=== PATIENT | female | born 1950 | race Caucasian/White ===

== ENCOUNTER 2022-02-03 11:21 | Inpatient (IN) ==
[2022-02-03] MEDS ORDERED: Morphine Sulfate 2 MG/ML SYRINGE IVP ONE (11:51)
[2022-02-03] MEDS ORDERED: Isovue-370 500 ML BOTTLE IVP ONE (12:30)
[2022-02-03 12:36] LABS: Basophils # 0.1 K/mcL (0.0-0.2); Basophils % 0.4 %; Eosinophils % 0.3 %; Hematocrit 35.6 % (35.3-44.9); Hemoglobin 11.2 g/dL (11.5-15.4); Immature Granulocytes % 0.8 % (0-4); Lymphocytes % 8.7 %; Mean Corpuscular HGB Conc 31.5 g/dL (31.6-35.5); Mean Corpuscular Hemoglobin 29.9 pg (28.0-33.3); Mean Corpuscular Volume 94.9 fL (83.0-100.0); Mean Platelet Volume 9.7 fL (9.4-12.4); Monocytes # 0.8 K/mcL (0.0-1.3); Monocytes % 6.5 %; Neutrophils # 9.7 K/mcL (1.6-8.9); Platelet Count 233 K/mcL (140-400); Red Blood Count 3.75 M/mcL (3.82-4.97); Red Cell Distribution Width 12.8 % (11.5-14.5); Segmented Neutrophils % 83.3 %; White Blood Count 11.7 K/mcL (4.3-11.1)
[2022-02-03 12:41] LABS: INR 1.2; Prothrombin Time 13.3 Seconds (9.4-12.1)
[2022-02-03 12:44] LABS: Activated Partial Thrombo Time 30.9 Seconds (26.0-36.0)
[2022-02-03] MEDS: 0.9 % Sodium Chloride 1,000 ML IVC SCH ×2 (12:48→13:46)
[2022-02-03 12:56] LABS: Bilirubin,Urine Negative (Negative); Blood,Urine Small (Negative); Clarity,Urine Clear (Clear); Color,Urine Light-Yellow (Yellow); Glucose,Urine (UA) Normal (Normal); Hyaline Casts,Urine Few per lpf (None Seen); Ketones,Urine >150 mg/dL (Negative); Leukocyte Esterase,Urine Negative (Negative); Mucus,Urine Few per lpf (None-Few); Nitrite,Urine Negative (Negative); PH,Urine 5.5 pH Units (5.0-8.0); Protein,Urine 50 mg/dL (Neg-Trace); RBC,Urine 0-3 per hpf (0-3); Squamous Epithelial Cell,Urine Few per hpf (None-Few); Urobilinogen,Urine Normal (Normal)
[2022-02-03 12:57] LABS: Albumin/Globulin Ratio 1.2 (1.1-2.2); Bilirubin,Direct 0.2 mg/dL (0.0-0.2); Bilirubin,Indirect 0.6 mg/dL (0.0-1.0); Bilirubin,Total 0.8 mg/dL (0.3-1.0); Calcium 10.1 mg/dL (8.6-10.3); Globulin 3.3 g/dL (2.4-3.5); Potassium 4.3 mEq/L (3.5-5.1); Total Protein 7.3 g/dL (6.4-8.9)
[2022-02-03] MEDS ORDERED: cefTRIAXone 1,000 MG in 0.9 % Sodium Chloride Mini Bag 100 ML IVPB ONE (12:57)
[2022-02-03 13:21] LABS: Troponin I 0.04 ng/mL (< 0.04)
[2022-02-03] MEDS ORDERED: *HR* HYDROmorphone 2 MG/ML SYRINGE IVP ONE (13:57)
[2022-02-03] MEDS ORDERED: diazePAM 10 MG/2 ML SYRINGE IVP ONE (14:19)
[2022-02-03 15:08] LABS: Influenza A PCR Negative (Negative); Influenza B PCR Negative (Negative); Resp. Syncytial Virus PCR Negative (Negative)
[2022-02-03] MEDS ORDERED: Ketorolac 30 MG/ML VIAL IVP PRN (15:11)
[2022-02-03] MEDS ORDERED: Melatonin 3 MG TABLET PO PRN (15:11)
[2022-02-03] MEDS ORDERED: Naloxone 0.4 MG/ML INJ IVP PRN (15:11)
[2022-02-03 15:13] LABS: SARS-CoV-2 by PCR (In House) Negative (Negative)
[2022-02-03] MEDS: Acetaminophen IV 1,000 MG/100 ML BAG IVPB SCH ×2 (16:43→23:46)
[2022-02-03] MEDS: *HR* OxyCODONE Immed Rel 5 MG TABLET PO PRN ×2 (17:31→23:46)
[2022-02-03] MEDS ORDERED: Acetaminophen IV 1,000 MG/100 ML BAG IVPB SCH (18:00)
[2022-02-03] MEDS ORDERED: *HR* Dextrose 50 % in Water (Syg) 50 ML SYRINGE IVP PRN (18:16)
[2022-02-03] MEDS ORDERED: Dextrose 4 GM Chewable Tablets PO PRN ×2 (18:16)
[2022-02-03] MEDS ORDERED: D5% in Water 1,000 ML IVC PRN (18:16)
[2022-02-03] MEDS: Carbidopa/Levodopa 25/100 TABLET PO SCH (20:46)
[2022-02-03] MEDS: traZODone 50 MG TABLET PO SCH (20:46)
[2022-02-03] MEDS: Gabapentin 100 MG CAPSULE PO SCH (20:46)
[2022-02-03] MEDS: Insulin LISPRO 300 UNITS/3 ML VIAL SUBQ SCH (20:47)
[2022-02-03] MEDS: Ondansetron 4 MG/2 ML VIAL IVP PRN (21:33)
[2022-02-04] MEDS: Acetaminophen IV 1,000 MG/100 ML BAG IVPB SCH ×4 (04:54→23:52)
[2022-02-04] MEDS: Ondansetron 4 MG/2 ML VIAL IVP PRN (04:54)
[2022-02-04 06:47] LABS: Basophils % 0.2 %; Eosinophils # 0.2 K/mcL (0.0-0.6); Eosinophils % 2.2 %; Hematocrit 28.6 % (35.3-44.9); Immature Granulocytes % 0.4 % (0-4); Lymphocytes # 0.9 K/mcL (0.6-4.6); Lymphocytes % 9.5 %; Mean Corpuscular HGB Conc 32.5 g/dL (31.6-35.5); Mean Corpuscular Hemoglobin 30.5 pg (28.0-33.3); Mean Corpuscular Volume 93.8 fL (83.0-100.0); Mean Platelet Volume 10.3 fL (9.4-12.4); Monocytes # 0.7 K/mcL (0.0-1.3); Monocytes % 7.3 %; Neutrophils # 7.9 K/mcL (1.6-8.9); Platelet Count 202 K/mcL (140-400); Red Blood Count 3.05 M/mcL (3.82-4.97); Segmented Neutrophils % 80.4 %; White Blood Count 9.9 K/mcL (4.3-11.1)
[2022-02-04 06:48] LABS: Hemoglobin 9.3 g/dL (11.5-15.4)
[2022-02-04 07:19] LABS: Potassium 3.7 mEq/L (3.5-5.1)
[2022-02-04] MEDS: Gabapentin 100 MG CAPSULE PO SCH ×2 (08:46→20:34)
[2022-02-04] MEDS: 0.9 % Sodium Chloride 1,000 ML IVC SCH (08:47)
[2022-02-04] MEDS: Carbidopa/Levodopa 25/100 TABLET PO SCH ×3 (08:47→20:34)
[2022-02-04] MEDS: Multivit/Ca/Min/Fe/FA 1 TAB TABLET PO SCH (08:48)
[2022-02-04] MEDS: lisinopriL 5 MG TABLET PO SCH (08:48)
[2022-02-04] MEDS: *HR* OxyCODONE Immed Rel 5 MG TABLET PO PRN ×2 (08:48→20:34)
[2022-02-04] MEDS ORDERED: NON-FORMULARY MEDICATION 1 EACH EACH (Vit A/Vit C/Vit E/Zinc/Copper [Preservision Areds Ta PO SCH (09:00)
[2022-02-04] MEDS: Insulin LISPRO 300 UNITS/3 ML VIAL SUBQ SCH ×4 (09:48→20:03)
[2022-02-04] MEDS: traZODone 50 MG TABLET PO SCH (20:34)
[2022-02-05 01:03] LABS: Basophils % 0.2 %; Eosinophils # 0.4 K/mcL (0.0-0.6); Eosinophils % 4.3 %; Hematocrit 26.1 % (35.3-44.9); Hemoglobin 8.2 g/dL (11.5-15.4); Immature Granulocytes % 0.4 % (0-4); Lymphocytes # 1.8 K/mcL (0.6-4.6); Lymphocytes % 18.9 %; Mean Corpuscular HGB Conc 31.4 g/dL (31.6-35.5); Mean Corpuscular Hemoglobin 29.8 pg (28.0-33.3); Mean Corpuscular Volume 94.9 fL (83.0-100.0); Monocytes # 0.8 K/mcL (0.0-1.3); Monocytes % 8.1 %; Neutrophils # 6.5 K/mcL (1.6-8.9); Platelet Count 195 K/mcL (140-400); Red Blood Count 2.75 M/mcL (3.82-4.97); Segmented Neutrophils % 68.1 %; White Blood Count 9.6 K/mcL (4.3-11.1)
[2022-02-05 01:25] LABS: Calcium 8.6 mg/dL (8.6-10.3); Potassium 3.8 mEq/L (3.5-5.1)
[2022-02-05] MEDS: 0.9 % Sodium Chloride 1,000 ML IVC SCH (02:22)
[2022-02-05] MEDS: Acetaminophen IV 1,000 MG/100 ML BAG IVPB SCH ×4 (05:00→23:19)
[2022-02-05] MEDS: Insulin LISPRO 300 UNITS/3 ML VIAL SUBQ SCH ×4 (09:46→20:50)
[2022-02-05] MEDS: Carbidopa/Levodopa 25/100 TABLET PO SCH ×3 (09:56→20:48)
[2022-02-05] MEDS: lisinopriL 5 MG TABLET PO SCH (09:56)
[2022-02-05] MEDS: Multivit/Ca/Min/Fe/FA 1 TAB TABLET PO SCH (09:56)
[2022-02-05] MEDS: Gabapentin 100 MG CAPSULE PO SCH (09:57)
[2022-02-05] MEDS: *HR* OxyCODONE Immed Rel 5 MG TABLET PO PRN ×3 (09:57→20:52)
[2022-02-05] MEDS: traZODone 50 MG TABLET PO SCH (20:50)
[2022-02-05] MEDS ORDERED: Gabapentin 100 MG CAPSULE PO SCH (21:00)
[2022-02-06] MEDS: Acetaminophen IV 1,000 MG/100 ML BAG IVPB SCH (04:45)
[2022-02-06] MEDS: *HR* OxyCODONE Immed Rel 5 MG TABLET PO PRN (04:50)
[2022-02-06 04:52] LABS: Basophils % 0.3 %; Eosinophils # 0.3 K/mcL (0.0-0.6); Eosinophils % 4.1 %; Hematocrit 28.1 % (35.3-44.9); Hemoglobin 8.8 g/dL (11.5-15.4); Immature Granulocytes % 0.4 % (0-4); Lymphocytes # 1.1 K/mcL (0.6-4.6); Mean Corpuscular HGB Conc 31.3 g/dL (31.6-35.5); Mean Corpuscular Hemoglobin 30.2 pg (28.0-33.3); Mean Corpuscular Volume 96.6 fL (83.0-100.0); Mean Platelet Volume 9.8 fL (9.4-12.4); Monocytes # 0.6 K/mcL (0.0-1.3); Neutrophils # 5.1 K/mcL (1.6-8.9); Platelet Count 223 K/mcL (140-400); Red Blood Count 2.91 M/mcL (3.82-4.97); Segmented Neutrophils % 71.2 %; White Blood Count 7.1 K/mcL (4.3-11.1)
[2022-02-06 05:10] LABS: BUN/Creatinine Ratio 18 (6-26); Blood Urea Nitrogen 17 mg/dL (8-23); Calcium 8.9 mg/dL (8.6-10.3); Carbon Dioxide 24 mEq/L (23-29); Chloride 106 mEq/L (98-107); Glucose 108 mg/dL (70-105); Osmolality,Calculated 284 (280-300); Sodium 136 mEq/L (136-145); eGFR For African Americans > 60 (> 60); eGFR For Non-African Americans 58 (> 60)
[2022-02-06 05:12] LABS: % Iron Saturation 7 % (15-50); Iron 17 mcg/dL (50-170); Transferrin 170 mg/dL (203-362)
[2022-02-06 05:27] LABS: Ferritin 64 ng/mL (10-120)
[2022-02-06 05:36] LABS: Folate > 22.3 ng/mL (3.0-16.0); Vitamin B12 > 1500 pg/mL (250-1100)
[2022-02-06] MEDS ORDERED: Acetaminophen 325 MG TABLET PO PRN (08:30)
[2022-02-06] MEDS ORDERED: *HR* OxyCODONE/APAP 5/325 TABLET PO PRN ×2 (08:30→20:23)
[2022-02-06] MEDS: lisinopriL 5 MG TABLET PO SCH (09:34)
[2022-02-06] MEDS: Multivit/Ca/Min/Fe/FA 1 TAB TABLET PO SCH (09:34)
[2022-02-06] MEDS: Sennosides/Docusate Sodium TABLET PO SCH ×2 (09:34→20:31)
[2022-02-06] MEDS: Carbidopa/Levodopa 25/100 TABLET PO SCH ×3 (09:35→20:32)
[2022-02-06] MEDS: Gabapentin 100 MG CAPSULE PO SCH ×3 (09:35→20:30)
[2022-02-06] MEDS: Insulin LISPRO 300 UNITS/3 ML VIAL SUBQ SCH ×4 (09:36→20:33)
[2022-02-06] MEDS: *HR* OxyCODONE/APAP 10/325 TABLET PO PRN ×4 (09:36→23:40)
[2022-02-06] MEDS: traZODone 50 MG TABLET PO SCH (20:30)
[2022-02-07] MEDS: *HR* OxyCODONE/APAP 10/325 TABLET PO PRN ×2 (05:26→19:16)
[2022-02-07 05:50] LABS: Basophils % 0.2 %; Eosinophils # 0.3 K/mcL (0.0-0.6); Eosinophils % 6.1 %; Hematocrit 26.5 % (35.3-44.9); Hemoglobin 8.3 g/dL (11.5-15.4); Immature Granulocytes % 0.4 % (0-4); Lymphocytes # 1.4 K/mcL (0.6-4.6); Lymphocytes % 25.7 %; Mean Corpuscular HGB Conc 31.3 g/dL (31.6-35.5); Mean Corpuscular Hemoglobin 30.2 pg (28.0-33.3); Mean Corpuscular Volume 96.4 fL (83.0-100.0); Mean Platelet Volume 9.6 fL (9.4-12.4); Monocytes # 0.6 K/mcL (0.0-1.3); Monocytes % 11.2 %; Neutrophils # 3.1 K/mcL (1.6-8.9); Platelet Count 244 K/mcL (140-400); Red Blood Count 2.75 M/mcL (3.82-4.97); Red Cell Distribution Width 13.2 % (11.5-14.5); Segmented Neutrophils % 56.4 %; White Blood Count 5.5 K/mcL (4.3-11.1)
[2022-02-07 06:10] LABS: BUN/Creatinine Ratio 16 (6-26); Blood Urea Nitrogen 14 mg/dL (8-23); Calcium 9.5 mg/dL (8.6-10.3); Carbon Dioxide 28 mEq/L (23-29); Chloride 105 mEq/L (98-107); Glucose 121 mg/dL (70-105); Osmolality,Calculated 286 (280-300); Potassium 4.1 mEq/L (3.5-5.1); Sodium 137 mEq/L (136-145); eGFR For African Americans > 60 (> 60); eGFR For Non-African Americans > 60 (> 60)
[2022-02-07] MEDS: Insulin LISPRO 300 UNITS/3 ML VIAL SUBQ SCH ×4 (09:24→21:21)
[2022-02-07] MEDS: Sennosides/Docusate Sodium TABLET PO SCH ×2 (10:42→21:20)
[2022-02-07] MEDS: Multivit/Ca/Min/Fe/FA 1 TAB TABLET PO SCH (10:42)
[2022-02-07] MEDS: Gabapentin 100 MG CAPSULE PO SCH ×3 (10:43→21:20)
[2022-02-07] MEDS: lisinopriL 5 MG TABLET PO SCH (10:43)
[2022-02-07] MEDS: Carbidopa/Levodopa 25/100 TABLET PO SCH ×3 (10:44→21:20)
[2022-02-07] MEDS: *HR* OxyCODONE ER (12 HR) 10 MG TABLET PO SCH ×2 (10:50→18:23)
[2022-02-07] MEDS: *HR* HYDROcodone/Acet 5/325 mg TABLET PO PRN (14:57)
[2022-02-07] MEDS: traZODone 50 MG TABLET PO SCH (21:20)
[2022-02-08] MEDS: *HR* OxyCODONE/APAP 10/325 TABLET PO PRN ×3 (00:25→16:15)
[2022-02-08] MEDS: *HR* HYDROcodone/Acet 5/325 mg TABLET PO PRN ×3 (03:14→21:24)
[2022-02-08] MEDS: *HR* OxyCODONE ER (12 HR) 10 MG TABLET PO SCH ×2 (06:01→17:56)
[2022-02-08] MEDS: lisinopriL 5 MG TABLET PO SCH (10:35)
[2022-02-08] MEDS: Gabapentin 100 MG CAPSULE PO SCH ×3 (10:35→21:24)
[2022-02-08] MEDS: Sennosides/Docusate Sodium TABLET PO SCH ×2 (10:35→21:24)
[2022-02-08] MEDS: Multivit/Ca/Min/Fe/FA 1 TAB TABLET PO SCH (10:35)
[2022-02-08] MEDS: Carbidopa/Levodopa 25/100 TABLET PO SCH ×3 (10:35→21:24)
[2022-02-08] MEDS: Insulin LISPRO 300 UNITS/3 ML VIAL SUBQ SCH ×4 (10:36→21:25)
[2022-02-08] MEDS: *HR* Heparin 5,000 UNIT/ML VIAL SQ SCH ×2 (10:38→17:56)
[2022-02-08] MEDS ORDERED: *HR* Heparin 5,000 UNIT/ML VIAL SQ SCH (18:00)
[2022-02-08] MEDS: traZODone 50 MG TABLET PO SCH (21:24)
[2022-02-09] MEDS: *HR* Heparin 5,000 UNIT/ML VIAL SQ SCH ×2 (05:57→16:46)
[2022-02-09] MEDS: Insulin LISPRO 300 UNITS/3 ML VIAL SUBQ SCH ×4 (08:00→21:00)
[2022-02-09] MEDS: Carbidopa/Levodopa 25/100 TABLET PO SCH ×3 (08:00→21:00)
[2022-02-09] MEDS: Gabapentin 100 MG CAPSULE PO SCH ×3 (08:00→21:00)
[2022-02-09] MEDS: Sennosides/Docusate Sodium TABLET PO SCH ×2 (08:00→21:00)
[2022-02-09] MEDS: lisinopriL 5 MG TABLET PO SCH (08:00)
[2022-02-09] MEDS: Multivit/Ca/Min/Fe/FA 1 TAB TABLET PO SCH (08:01)
[2022-02-09] MEDS: *HR* OxyCODONE ER (12 HR) 10 MG TABLET PO SCH ×2 (08:01→20:59)
[2022-02-09] MEDS: *HR* OxyCODONE/APAP 10/325 TABLET PO PRN (11:17)
[2022-02-09] MEDS: Ondansetron 4 MG/2 ML VIAL IVP PRN (16:45)
[2022-02-09] MEDS: *HR* HYDROcodone/Acet 5/325 mg TABLET PO PRN (18:51)
[2022-02-09] MEDS: traZODone 50 MG TABLET PO SCH (20:59)
[2022-02-09] MEDS ORDERED: *HR* Metoprolol 5 MG/5 ML VIAL IVP ONE (23:05)
[2022-02-10 00:34] LABS: Hematocrit 29.5 % (35.3-44.9); Hemoglobin 9.7 g/dL (11.5-15.4); Mean Corpuscular HGB Conc 32.9 g/dL (31.6-35.5); Mean Corpuscular Hemoglobin 30.1 pg (28.0-33.3); Mean Corpuscular Volume 91.6 fL (83.0-100.0); Mean Platelet Volume 9.3 fL (9.4-12.4); Platelet Count 333 K/mcL (140-400); Red Blood Count 3.22 M/mcL (3.82-4.97); Red Cell Distribution Width 12.9 % (11.5-14.5)
[2022-02-10 00:37] LABS: White Blood Count 9.6 K/mcL (4.3-11.1)
[2022-02-10 00:53] LABS: BUN/Creatinine Ratio 23 (6-26); Blood Urea Nitrogen 18 mg/dL (8-23); Calcium 9.9 mg/dL (8.6-10.3); Carbon Dioxide 29 mEq/L (23-29); Chloride 97 mEq/L (98-107); Glucose 138 mg/dL (70-105); Magnesium 1.6 mg/dL (1.6-2.6); Osmolality,Calculated 282 (280-300); Phosphorous 3.8 mg/dL (2.7-4.5); Potassium 4.6 mEq/L (3.5-5.1); Sodium 134 mEq/L (136-145); eGFR For African Americans > 60 (> 60); eGFR For Non-African Americans > 60 (> 60)
[2022-02-10] MEDS: *HR* OxyCODONE/APAP 10/325 TABLET PO PRN ×2 (03:32→12:47)
[2022-02-10] MEDS: *HR* Heparin 5,000 UNIT/ML VIAL SQ SCH ×2 (05:39→17:12)
[2022-02-10] MEDS: *HR* HYDROcodone/Acet 5/325 mg TABLET PO PRN ×2 (05:46→18:30)
[2022-02-10] MEDS ORDERED: Metoprolol XL (24 HR) Succ 25 MG TAB.ER.24H PO SCH (09:00)
[2022-02-10] MEDS: Gabapentin 100 MG CAPSULE PO SCH ×2 (09:42→17:08)
[2022-02-10] MEDS: *HR* OxyCODONE ER (12 HR) 10 MG TABLET PO SCH (09:42)
[2022-02-10] MEDS: Carbidopa/Levodopa 25/100 TABLET PO SCH ×2 (09:42→17:07)
[2022-02-10] MEDS: Sennosides/Docusate Sodium TABLET PO SCH (09:43)
[2022-02-10] MEDS: Insulin LISPRO 300 UNITS/3 ML VIAL SUBQ SCH ×3 (09:43→17:08)
[2022-02-10] MEDS: Multivit/Ca/Min/Fe/FA 1 TAB TABLET PO SCH (09:43)
[2022-02-10] MEDS: lisinopriL 5 MG TABLET PO SCH (09:46)
[2022-02-10 10:13] LABS: Basophils % 0.1 %; Eosinophils # 0.2 K/mcL (0.0-0.6); Eosinophils % 2.1 %; Hematocrit 29.1 % (35.3-44.9); Hemoglobin 9.3 g/dL (11.5-15.4); Immature Granulocytes % 0.3 % (0-4); Lymphocytes # 1.7 K/mcL (0.6-4.6); Lymphocytes % 17.9 %; Mean Corpuscular Hemoglobin 29.7 pg (28.0-33.3); Mean Platelet Volume 9.2 fL (9.4-12.4); Monocytes # 0.8 K/mcL (0.0-1.3); Monocytes % 8.3 %; Neutrophils # 6.6 K/mcL (1.6-8.9); Platelet Count 323 K/mcL (140-400); Red Blood Count 3.13 M/mcL (3.82-4.97); Red Cell Distribution Width 13.2 % (11.5-14.5); Segmented Neutrophils % 71.3 %; White Blood Count 9.2 K/mcL (4.3-11.1)
[2022-02-10 10:35] LABS: BUN/Creatinine Ratio 23 (6-26); Blood Urea Nitrogen 21 mg/dL (8-23); Calcium 9.5 mg/dL (8.6-10.3); Carbon Dioxide 30 mEq/L (23-29); Chloride 98 mEq/L (98-107); Glucose 147 mg/dL (70-105); Magnesium 1.5 mg/dL (1.6-2.6); Osmolality,Calculated 286 (280-300); Potassium 4.5 mEq/L (3.5-5.1); Sodium 135 mEq/L (136-145); eGFR For African Americans > 60 (> 60); eGFR For Non-African Americans 60 (> 60)
[2022-02-10 10:46] LABS: Thyroid Stimulating Hormone 3.634 mcIU/mL (0.340-5.600)
[2022-02-10] MEDS: Ondansetron 4 MG/2 ML VIAL IVP PRN (12:31)
[2022-02-10 16:12] VITALS: BP 99/74; PULSE 86; TEMP 98.2; O2SAT 96
== END 2022-02-10 18:30 | DRG 535 ==
LOC: 4WAOSI 11:21 → EMEROOARM 11:21 → 4WAOSI 17:07 → SUATTDRO 02-04 15:30
PROVIDERS: ADMIT Internal Medicine; ATTEND Pharmacist